=== PATIENT | male | born 1975 | race Two or more races ===

== ENCOUNTER 2018-05-09 22:17 | Emergency (ER) | payer OTHER ==
[~2018-05-09] VITALS: Ht 182.9 cm; Wt 93.3 kg
[2018-05-09 22:25] VITALS: BP 158/98
[2018-05-09] MEDS ORDERED: PROPARACAINE OPHTH 0.5%, 15ML LEFTEYE STA (22:29)
[2018-05-09] MEDS ORDERED: FLUORESCEIN OPHTHALMIC 1 MG STRIP ONE (22:42)
[2018-05-09] MEDS ORDERED: PROPARACAINE OPHTH 0.5%, 15ML ONE (22:42)
--- NOTE | 2018-05-09 22:46 | NUR ---
"I HAVE SOMETHING IN MY EYE." STATES A LITTLE "STUMP" FROM [place]. DENIES VISUAL CHANGES.
[2018-05-09] MEDS ORDERED: FLUORESCEIN OPHTHALMIC 1 MG STRIP EACHEYE ONE (23:00)
--- NOTE | 2018-05-09 23:05 | NUR ---
Patient/Caregiver given discharge instructions and they have confirmed that they understand the instructions. Patient ambulatory with steady gait.
== END 2018-05-09 23:06 | disposition home or self-care (01) ==
LOC: ED 22:45
DX: T15.02XA Foreign body in cornea, left eye, initial encounter (principal); X58.XXXA Exposure to other specified factors, initial encounter; Y93.89 Activity, other specified; Y92.89 Other specified places as the place of occurrence of the external cause; Y99.8 Other external cause status
CPT/HCPCS: 65220; 99284